=== PATIENT | male | born 1970 | race Caucasian/White ===

== ENCOUNTER 2018-11-28 10:30 | Outpatient (REF) | payer OTHER, SELFPAY ==
--- NOTE | 2018-11-28 10:21 | SKI_PTH ---
PATIENT: Joel Mendieta LOC: [facility] U#:[id number] AGE/SX: 48/M ROOM: RE11/28/[address]: Gómez Villalta DO : 1970 BED: DIS: 11/28/2018 SPEC #: [id number] RECD: 11/28/18 18:00 STATUS: RADHA REQ #: [id number] ROMY: 11/28/18 10:[address]: Gómez Villalta DEPT: Surgical Specimen RECD BY: Candice Mccray ENTERED: 11/28/18 18:00 SP TYPE: SKI OTHR DR: Unknown,Unknown Tissues: 1 - SKIN BIOPSY(SHAVE/PUNCH) Procedures: SKIN LEVEL 4 Comments: [id number]
== END 2018-11-28 10:50 ==
LOC: LBN 10:30
PROVIDERS: Visit Provider Otolaryngology Otolaryngology/Facial Plastic Surgery
DX: C44.519 Basal cell carcinoma of skin of other part of trunk (principal)
CPT/HCPCS: 88305

== ENCOUNTER → 2023-11-12 11:27 | Outpatient (CLI) | payer OTHER, SELFPAY ==
--- NOTE | 2023-11-12 11:15 | DI.MRI_ITS ---
Exam(s) MR LUMBAR SPINE WO EXAM: MR LUMBAR SPINE WO CLINICAL HISTORY: lumbar pain, disc herniation, M51.26. TECHNIQUE: Multiplanar multisequence MRI of the Lumbar spine was performed. COMPARISON: No exams were available for comparison FINDINGS: Bones: The last intervertebral disc space is designated the L5/S1 level for the numbering purpose of this ex amination. The vertebral body heights are well maintained. Alignment: Unremarkable. There is some red marrow reconversion. This could be secondary to anemia. Clinical correlation recom mended. Cord: The conus tip ends at the T12 level. It is of normal size and signal intensity. T12-L1: Minimal disc bulging. No focal disc herniation is present. No central spinal canal stenosis. No neural foraminal stenosis. L1-2: No focal disc herniation is present. No central spinal canal stenosis.No neural foraminal sten osis. L2-3: Mild loss of disc height. Concentric disc bulging. Superimposed right paracentral and lateral d isc herniation with superior extrusion of disc material posterior to the L2 vertebral body. No centra l spinal canal stenosis.Right-sided neural foraminal narrowing. Mild facet degenerative changes. L3-4: Mild disc bulging. Mild facet degenerative changes.No focal disc herniation is present. No mohan tral spinal canal stenosis.Mild bilateral neural foraminal narrowing. L4-5: Mild loss of disc height. Mild concentric disc bulging. Mild facet degenerative changes no foc al disc herniation is present. No central spinal canal stenosis.Moderate left neural foraminal narro wing. L5-S1: Moderate loss of disc height. Small circumferentially projecting osteophytes.No focal disc her niation is present. No central spinal canal stenosis.Moderate to severe bilateral neural foraminal narrowing. The visualized SI joints and sacrum are unremarkable. Soft tissues: The paraspinal soft tissues are unremarkable. IMPRESSION: Right lateral disc herniation at L2-3 with superior extrusion of disc material. Neural foraminal narrowing at multiple levels secondary to combination facet degenerative changes and disc osteophytes, greatest at L5-S1. DATA REPOSITORY:
== END ==
PROVIDERS: Visit Provider Student in an Organized Health Care Education/Training Program
DX: M51.26 Other intervertebral disc displacement, lumbar region (principal)
CPT/HCPCS: 72148